=== PATIENT | female | born 1995 | race African-American/Black ===

== ENCOUNTER 2016-08-28 20:40 | Emergency (ER) | payer MEDICARE, MEDICAID ==
[~2016-08-28] VITALS: Ht 165.1 cm; Wt 102.1 kg
[~2016-08-28 20:40] MED LIST: ALBUTEROL SULF8.5 GM INH; CIPRO500 MG PO; IBUPROFEN600 MG ORAL; KEFLEX500 MG PO; MAGIC MOUTH WAS60 ML; NKM; PHENAZOPYRIDIN100 MG PO; PREDNISONE20 MG ORAL
--- NOTE | 2016-08-28 21:42 | Emergency Room Report ---
History of Present Illness General Chief Complaint: Vaginal Source: Patient Present Illness HPI Is a 21-year-old female with no past medical history. She is on control pill. She presents with chief complaint of vaginal discharge and itchiness. Onset for last couple days. She is sexually active with a new partner. No fever or chills but no nausea vomiting. No pain. No bleeding. Said that there is an odor to the discharge. She does have a history of Chlamydia in the past. Allergies: Coded Allergies: No Known Allergies (Unverified , 03/10/13) Patient History Past Medical History: none, see triage record, old chart reviewed Past Surgical History: none Pertinent Family History: none Social History: Denies: drug use Last Menstrual Period: 08/01/16 Now: No Immunizations: other Reviewed Nursing Documentation: PMH: Agreed, PSxH: Agreed Nursing Documentation-PMH Past Medical History: No Stated History Review of Systems Eye: Denies: blurred vision, eye pain ENT: Denies: ear pain, nose congestion, throat swelling Respiratory: Denies: cough, shortness of breath Cardiovascular: Denies: chest pain, palpitations Gastrointestinal: Denies: abdominal pain, diarrhea, nausea, vomiting Genitourinary: Reports: discharge Musculoskeletal: Denies: back pain, joint pain Skin: Denies: rash Neurological: Denies: headache, numbness Endocrine: Denies: increased thirst, increased urine Hematologic/Lymphatic: Denies: easy bruising All Other Systems: negative except mentioned in HPI Physical Exam Vital Signs Date Time Temp Pulse Resp B/P Pulse Ox O2 Delivery O2 Flow Rate FiO2 08/28/16 20:49 98.2 103 16 131/82 99 Room Air vitals normal Sp02 EP Interpretation: reviewed, normal General Appearance: well appearing, no apparent distress, alert Head: normocephalic, atraumatic Eyes: bilateral eye EOMI, bilateral eye PERRL ENT: hearing grossly normal, normal pharynx Neck: full range of motion, supple, no meningismus Respiratory: chest non-tender, lungs clear, normal breath sounds Cardiovascular #1: regular rate, rhythm, no murmur Gastrointestinal: normal bowel sounds, non tender, no mass, no organomegaly, no bruit, non-distended Genitourinary: other - Pelvic done with female RN extractions technologist. There is a liquidy whitish discharge. No cervical motion tenderness. No adnexal tenderness. External exam normal. Musculoskeletal: back normal, gait/station normal, normal range of motion Neurologic: alert, oriented x3 Psychiatric: mood/affect normal Skin: warm/dry Medical Decision Making Diagnostic Impression: Primary Impression: Bacterial vaginosis ER Course Patient presents with bacterial vaginosis. No evidence of Trichomonas. Gonorrhea and Chlamydia cultures sent. I doubt this is the infection. We'll discharge him with antibiotics. No evidence of ectopic. Last Vital Signs Date Time Temp Pulse Resp B/P Pulse Ox O2 Delivery O2 Flow Rate FiO2 08/28/16 20:49 98.2 103 16 131/82 99 Room Air Status: improved Disposition: HOME, SELF-CARE Condition: Stable Scripts Metronidazole* (FLAGYL*) 500 Mg Tablet 500 MG ORAL BID, #14 TAB Prov: DAVINA MISHRA M.D. 08/28/16 Referrals: NOT CHOSEN [facility]/,REFERRING (PCP) Additional Instructions: Followup with your Dr. in 7 days. Return if symptom worsen. Do not drink alcohol with antibiotics. Use other form of contraception while on antibiotics. This may affect your control pill. DAVINA MISHRA M.D. Aug 28, 2016 21:42
[2016-08-28 21:50] LABS: APPEARANCE,URINE SLIGHTLY CLOUDY; KETONES,URINE NEGATIVE (NEGATIVE); LEUKOCYTE ESTERASE ,URINE 2+ (NEGATIVE); NITRITE,URINE NEGATIVE (NEGATIVE); PH,URINE 6 (4.5-8.0); PROTEIN,URINE NEGATIVE (NEGATIVE); UROBILINOGEN,URINE NORMAL MG/DL (0.0-1.0)
[2016-08-28] MEDS ORDERED: METRONIDAZOLE500 MG ORAL (21:56)
[2016-08-28] MEDS ORDERED: DIFLUCAN150 MG PO (22:07)
[2016-08-28 22:10] VITALS: BP 132/90
[2016-08-28 22:12] LABS: BACTERIA,URINE FEW /HPF; RBC,URINE 0-2 /HPF (0 - 2); SQUAMOUS EPITHELIAL CELL,UR MANY /LPF (NONE/OCC)
== END 2016-08-28 22:12 | disposition home or self-care (01) ==
LOC: EMR 21:11
DX: N76.0 Acute vaginitis (principal); B96.89 Other specified bacterial agents as the cause of diseases classified elsewhere
CPT/HCPCS: 81003; 81025; 87210; 87491; 99283

== ENCOUNTER 2017-06-01 13:51 | Emergency (ER) | payer MEDICAID, MEDICARE ==
[~2017-06-01] VITALS: Ht 165.1 cm; Wt 102.1 kg
[~2017-06-01 13:51] MED LIST changes: +DIFLUCAN150 MG PO; +METRONIDAZOLE500 MG ORAL
[2017-06-01] MEDS ORDERED: Azithromycin 250mg tab ORAL ONE (14:30)
[2017-06-01] MEDS ORDERED: Lidocaine 1% MPF 10mg/ml 5ml INJ ONE (14:30)
[2017-06-01 14:50] LABS: APPEARANCE,URINE CLEAR; BILIRUBIN, URINE NEGATIVE (NEGATIVE); COLOR,URINE PALE YELLOW; GLUCOSE, URINE (UA) NEGATIVE (NEGATIVE); KETONES,URINE NEGATIVE (NEGATIVE); LEUKOCYTE ESTERASE ,URINE 1+ (NEGATIVE); NITRITE,URINE NEGATIVE (NEGATIVE); PH,URINE 7 (4.5-8.0); PROTEIN,URINE NEGATIVE (NEGATIVE); UROBILINOGEN,URINE NORMAL MG/DL (0.0-1.0)
[2017-06-01] MEDS ORDERED: METRONIDAZOLE500 MG ORAL (15:30)
[2017-06-01 15:34] VITALS: BP 128/84
--- NOTE | 2017-06-01 20:45 | Emergency Room Report ---
History of Present Illness General Chief Complaint: Female Urogenital Problems Source: Patient Present Illness [facility] The patient is a 22-year-old female who denies any medical history presenting for possible vaginal infection. She states that she has had approximately one week of foul vaginal odor described as fishy as well as a white to yellow discharge. She has also been with the promiscuous male partner and is concerned for STD. She states that pain is localized to the vaginal area described as a 3/10 burning sensation. She denies other symptoms including dysuria, hematuria, back pain, abdominal pain, fever Allergies: Coded Allergies: No Known Allergies (Unverified , 03/10/13) Patient History Past Medical History: see triage record Pertinent Family History: none Reviewed Nursing Documentation: PMH: Agreed, PSxH: Agreed Nursing Documentation-PMH Past Medical History: No Stated History Review of Systems All Other Systems: negative except mentioned in HPI Physical Exam Vital Signs Date Time Temp Pulse Resp B/P (MAP) Pulse Ox O2 Delivery O2 Flow Rate FiO2 06/01/17 13:56 98.6 98 20 125/76 100 Room Air Sp02 EP Interpretation: reviewed, normal General Appearance: no apparent distress, alert, GCS 15, non-toxic Head: normocephalic, atraumatic Eyes: bilateral eye normal inspection, bilateral eye PERRL ENT: hearing grossly normal, normal pharynx, no angioedema, normal voice Respiratory: chest non-tender, lungs clear, normal breath sounds, speaking full sentences Gastrointestinal: normal bowel sounds, non tender, soft, non-distended, no guarding, no rebound Musculoskeletal: back normal, gait/station normal, normal range of motion, non- tender Neurologic: alert, oriented x3, responsive, motor strength/tone normal, sensory intact, speech normal Psychiatric: judgement/insight normal, memory normal, mood/affect normal, no suicidal/homicidal ideation Lymphatic: no adenopathy Medical Decision Making PA Attestation Dr. Hirsch is my supervising physician. Patient management was discussed with my supervising physician Diagnostic Impression: Primary Impression: BV (bacterial vaginosis) Additional Impression: Possible exposure to STD ER Course The patient is a 22-year-old female who denies any medical history presenting for possible vaginal infection Differential diagnosis considered but not limited to: UTI, vaginitis, pyelonephritis, pyelonephrosis, PID, ectopic , STD PE: Vitals WNL. NAD. Abdomen: Normal appearance. Non distended. No ecchymosis. Normal BS. Non TTP. No McBurney point tenderness. No guarding. No CVA tenderness UA shows squamous cells. Neg preg The patient will be treated for STD due to sexual history with Rocephin and azithromycin. Pt will be ND'ed home with prescription for flagyl and will FU with PMD. ER precautions given Laboratory Tests Test 06/01/17 14:30 Urine Color Pale yellow Urine Appearance Clear Urine pH 7 (4.5-8.0) Urine Specific [place] 1.010 (1.005-1.035) Urine Protein Negative (NEGATIVE) Urine Glucose (UA) Negative (NEGATIVE) Urine Ketones Negative (NEGATIVE) Urine Occult Blood Negative (NEGATIVE) Urine Nitrite Negative (NEGATIVE) Urine Bilirubin Negative (NEGATIVE) Urine Urobilinogen Normal MG/DL (0.0-1.0) Urine Leukocyte Esterase 1+ (NEGATIVE) H Urine RBC 0-2 /HPF (0 - 2) Urine WBC 2-4 /HPF (0 - 2) Urine Squamous Epithelial Cells Many /LPF (NONE/OCC) H Urine Bacteria Few /HPF (NONE) Urine HCG, Qualitative Negative Lab Results Impression Urinalysis shows squamous cells Last Vital Signs Date Time Temp Pulse Resp B/P (MAP) Pulse Ox O2 Delivery O2 Flow Rate FiO2 06/01/17 15:34 98.5 84 19 128/84 100 Room Air Status: improved Disposition: HOME, SELF-CARE Condition: Improved Scripts Metronidazole* (FLAGYL*) 500 Mg Tablet 500 MG ORAL BID, #14 TAB 0 Refills Prov: NEREIDA URIARTE 06/01/17 Patient Instructions: Bacterial Vaginosis Additional Instructions: I discussed my findings with the patient. All questions and concerns have been answered. Treatment and medication compliance have been addressed. I advised the patient that they need to follow up with PMD in 3-5 days. Return to ED if symptoms worsen, new symptoms arise, or if needed for any reason. Patient verbalized understanding of discharge instructions. NEREIDA URIARTE Jun 01, 2017 20:45
== END 2017-06-01 15:34 | disposition home or self-care (01) ==
LOC: EMR 14:13
DX: N76.0 Acute vaginitis (principal); B96.89 Other specified bacterial agents as the cause of diseases classified elsewhere
CPT/HCPCS: 81003; 81025; 96372; 99284; J0696; Q0144

== ENCOUNTER 2018-04-26 20:55 | Emergency (ER) | payer MEDICAID ==
[~2018-04-26] VITALS: Ht 165.1 cm; Wt 108.9 kg
[2018-04-26 21:05] VITALS: BP 128/77
--- NOTE | 2018-04-26 21:35 | Emergency Room Report ---
History of Present Illness General Chief Complaint: Vaginal Source: Patient Present Illness HPI Patient presents with irregular vaginal bleeding. She's had irregular periods and was placed on control when she was 13. She's very diligent the dosing of this however she may have missed a few pills. After she misses a pill she takes double the dose as she should. She's not sure she's . She denies any fevers, chills, dizziness, history of anemia. She uses 3 or 4 pads a day. She's passed some clots but not many and not large. She denies dysuria. She does have some abdominal and pelvic cramping. She states it's mild and she does not want pain medication at this time. No vaginal discharge aside from menstrual blood. The patient feels that this may be related to stress. Her mother last month. No rashes, other bleeding problems, joint pain, headache. Allergies: Coded Allergies: No Known Allergies (Unverified , 03/10/13) Patient History Past Medical History: see triage record Social History: Denies: smoking Social History Narrative works at [employer] Last Menstrual Period: still on Now: No Reviewed Nursing Documentation: PMH: Agreed; PSxH: Agreed Nursing Documentation-PMH Past Medical History: No Stated History Review of Systems All Other Systems: negative except mentioned in HPI Physical Exam Vital Signs Date Time Temp Pulse Resp B/P (MAP) Pulse Ox O2 Delivery O2 Flow Rate FiO2 04/26/18 21:03 98.1 77 16 128/77 98 Room Air Sp02 EP Interpretation: reviewed, normal General Appearance: well appearing, no apparent distress Head: normocephalic, atraumatic Eyes: bilateral eye normal inspection, bilateral eye PERRL ENT: hearing grossly normal, normal voice, moist mucus membranes Neck: full range of motion, supple Respiratory: no respiratory distress, speaking full sentences Cardiovascular #1: normal peripheral pulses, regular rate, rhythm Cardiovascular #2: 2+ radial (R) Gastrointestinal: normal inspection, normal bowel sounds, non tender, soft, no mass Genitourinary: no CVA tenderness, deferred - for Ob Musculoskeletal: no calf tenderness Neurologic: alert, normal gait, grossly normal Psychiatric: mood/affect normal Skin: no rash Medical Decision Making Diagnostic Impression: Primary Impression: Abnormal vaginal bleeding Additional Impression: Situational stress ER Course Patient presents with abnormal vaginal bleeding on control. Differential includes , stress, variable compliance, fibroid amongst others. Patient will be evaluated with urinalysis and test. The patient is declining analgesia at this time. If , will perform ultrasound and further lab testing. Clinically she is not significantly anemic at this time. UA with blood without pyuria. Preg neg. Discussed need for follow up and indications for return to ED. Patient stable for outpatient observation and treatment. Laboratory Tests Test 04/26/18 21:33 Urine Color Pale yellow Urine Appearance Slightly cloudy Urine pH 5 (4.5-8.0) Urine Specific [place] 1.025 (1.005-1.035) Urine Protein 2+ (NEGATIVE) H Urine Glucose (UA) Negative (NEGATIVE) Urine Ketones Negative (NEGATIVE) Urine Blood 5+ (NEGATIVE) H Urine Nitrite Negative (NEGATIVE) Urine Bilirubin Negative (NEGATIVE) Urine Urobilinogen Normal MG/DL (0.0-1.0) Urine Leukocyte Esterase 1+ (NEGATIVE) H Urine RBC Tntc /HPF (0 - 2) H Urine WBC 2-4 /HPF (0 - 2) Urine Squamous Epithelial Cells Moderate /LPF (NONE/OCC) H Urine Bacteria Few /HPF (NONE) Urine HCG, Qualitative Negative (NEGATIVE) Last Vital Signs Date Time Temp Pulse Resp B/P (MAP) Pulse Ox O2 Delivery O2 Flow Rate FiO2 04/26/18 23:48 98.1 86 18 137/77 95 Room Air Status: unchanged Disposition: HOME, SELF-CARE Condition: Stable Scripts Ibuprofen* (MOTRIN*) 600 Mg Tablet 600 MG ORAL Q6H PRN for For Pain, #18 TAB Prov: Wojciech Head MD 04/26/18 Wojciech Head MD Apr 26, 2018 21:35
[2018-04-26 21:45] LABS: APPEARANCE,URINE SLIGHTLY CLOUDY; BILIRUBIN, URINE NEGATIVE (NEGATIVE); COLOR,URINE PALE YELLOW; GLUCOSE, URINE (UA) NEGATIVE (NEGATIVE); KETONES,URINE NEGATIVE (NEGATIVE); LEUKOCYTE ESTERASE ,URINE 1+ (NEGATIVE); NITRITE,URINE NEGATIVE (NEGATIVE); PH,URINE 5 (4.5-8.0); PROTEIN,URINE 2+ (NEGATIVE); UROBILINOGEN,URINE NORMAL MG/DL (0.0-1.0)
[2018-04-26] MEDS ORDERED: IBUPROFEN600 MG ORAL (22:55)
[2018-04-26 23:48] VITALS: BP 137/77
== END 2018-04-26 23:48 | disposition home or self-care (01) ==
LOC: EMR 21:30
DX: N93.8 Other specified abnormal uterine and vaginal bleeding (principal); F43.9 Reaction to severe stress, unspecified; Z79.3 Long term (current) use of hormonal contraceptives
CPT/HCPCS: 81003; 81025; 99283